=== PATIENT | male | born 1970 | race Caucasian/White ===

== ENCOUNTER 2024-12-07 15:22 | Emergency (ER) | payer OTHER, SELFPAY ==
[2024-12-07 15:23] VITALS: BP 129/78; PULSE 107; RESP 18; TEMP 36.4; O2SAT 98; BMI 36.0
--- NOTE | 2024-12-07 15:47 | EDS_ITS ---
HPI History of Present Illness Chief Complaint: Cough Informant: patient and spouse/S.O. Narrative Narrative: Presents for evaluation concerning recurrent Lyme disease. Patient reported initial productive cough a month ago subsided to a lingering dry cough. He states over the last week developed recurrent fever had myalgias. He has been using Tylenol however after finishing this and timeframe fever would come back. Been using Tylenol to help with symptoms. He states similar symptoms fevers aches when he had Lyme disease a year ago. 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 2 weeks ago removed a tick from was the last time however states no rash or lesions at this time. A year ago was treated with 21 days of antibiotics with resolution of symptoms. Constant removing them. A year ago he had a target lesion on his wrist. Of note he went to urgent care this past Monday due to fevers and they placed him on Z-Bertram for which she finished for treatment of chronic bronchitis. He states x-ray was performed and negative. Fevers will still come and go. No vomiting no diarrhea. No urinary symptoms. No tobacco history. No asthma or COPD history. Prior similar symptoms: Yes PFSH [facility] Medical History (Updated 12/07/24 @ 15:51 by Dayana Powell) Lyme disease Home Medications ?Medication ?Instructions ?Recorded ?Last Taken ?Type acetaminophen 500 mg capsule 1,000 mg PO Q6H PRN fever or pain 12/07/24 12/07/24 History albuterol sulfate 90 mcg/actuation 2 inh inhalation Q6 H PRN shortness 12/07/24 12/04/24 History aerosol inhaler of breath or wheezing azithromycin 250 mg tablet See Rx Instructions PO .COM PLEX 12/07/24 12/07/24 History [id number] 5 ml PO 4X/DAY PRN PRN cold 12/07/24 12/04/24 History 2 mg-30 mg-10 mg/5 mL oral syrup symptoms doxycycline hyclate 100 mg tablet 100 mg PO BID #41 ta bs 12/07/24 Unknown Rx Allergy/AdvReac Type Severity Reaction Status Date / Time No Known Allergies Allergy Verified 12/07/24 15:45 Social History Smoking Status: Never smoker ROS ROS ED Constitutional Constitutional ED: Reports fever(s); Denies chills or sweats ENT ENT ED: Denies sore throat Cardiovascular Cardiovascular: Denies chest pain, leg edema, palpitations or racing heartbeat Respiratory/Chest Respiratory/Chest: Reports cough; Denies dyspnea or dyspnea on exertion Gastrointestinal Gastrointestinal: Denies abdominal pain, diarrhea, nausea or vomiting Genitourinary Genitourinary ED: Denies dysuria, hematuria or urinary frequency Musculoskeletal Musculoskeletal: Reports myalgias; Denies back pain, extremity pain or neck pain Integumentary Denies rash or wounds Neurologic Neurologic: Denies headache(s), paresthesias or weakness EXAM Physical Exam Const Vital Signs: 12/07/24 15:23 12/07/24 15:51 12/07/24 16:14 Temperature 97.5 F L 97.5 F L Temperature Source Temporal Pulse Rate 107 H 107 H Respiratory Rate 18 18 Respiratory Effort Normal Non-Labored Respiratory Depth Normal Respiratory Pattern Normal Blood Pressure 129/78 H 129/78 H Blood Pressure Mean 95 95 Pulse Ox 98 98 Oxygen Delivery Method Room Air Positive well nourished and well developed General Appearance ED: well developed and NAD HEENT Reports moist mucous membranes normocephalic and atraumatic Eyes General Eye ED: Yes normal appearance of both eyes Neck full ROM Chest Wall Chest: Negative for tenderness Resp normal respiratory effort and normal air movement Effort and Inspection: symmetric chest movement; Negative for respiratory distress Cardio regular rate, regular rhythm and no murmurs Peripheral Pulses: pulses 2+ throughout GI normal to inspection, nondistended, normoactive bowel sounds and non-tender Palpation: Negative for guarding or rebound tenderness present Extremity normal to inspection General Extremety ED: Negative for edema or tenderness General Extremity: Negative for edema Neuro oriented x3 and no sensory deficits noted Sensorium / Orientation: awake and alert Skin no rashes or lesions noted and no wounds MDM MDM MDM Narrative Medical decision making narrative: Interventions / MDM: Differential diagnosis: Reported fevers, history of Lyme disease Diagnosis considered but do not suspect: No clinical pneumonia. No urinary symptoms for UTI concerns. My EKG interpretation: N/A Imaging independently reviewed and interpreted by myself: N/A External documents reviewed: N/A Test considered but not ordered:N/A ED course: Patient with no current rash or lesions afebrile in the ED.'s been having symptoms similar to Lyme disease with his fevers a year ago. He has had tick exposures most recent 2 weeks ago. He states cough with mild and not worsened with his fevers. No urinary symptoms. He does not have a PCP. With reported history will send Lyme titers. Will start treatment with doxycycline. Since he does not have a PCP he will send a 21-day course to his pharmacy. He is given follow-up as an outpatient. Patient agrees with this plan. All questions were answered. Re-evaluation: stable Disposition discussed with patient/family/significant other: Patient and significant other Case discussed with consulting clinician: N/A This note was generated with [employer] software. It may contain incorrect words, spelling, and punctuation that were not noted in checking the note before signing. Discharge Plan Triage Chief Complaint: Cough ED Provider: Francisco Porter Dx/Rx/DC Orders Clinical Impression: Fever, Hx of Lyme disease Instructions: ED Lyme Disease Prescriptions: New doxycycline hyclate 100 mg tablet 100 mg PO BID Qty: 41 0RF No Action acetaminophen 500 mg capsule 1,000 mg PO Q6H PRN (Reason: fever or pain) albuterol sulfate 90 mcg/actuation HFA aerosol inhaler 2 inh inhalation Q6H PRN (Reason: shortness of breath or wheezing) azithromycin 250 mg tablet See Rx Instructions .ROUTE .COMPLEX Patient Comments: pt states completed course this morning (12/07/24) Rx Instructions: For 250 mg dose pack: take 500 mg today (day 1), then 250 mg for 4 days (days 2-5) [id number] 2-30-10 mg/5 mL syrup 5 ml PO 4X/DAY PRN PRN (Reason: cold symptoms) Primary Care Provider: Care Physician,Leslie Primary Referrals: Roxana Dhillon [facility], DO [[facility]] - 1-2 Weeks Activity Restrictions/Additional Instructions: Lyme titer sent. Reported history similar presentation with Lyme disease. You were given 21-day course of antibiotics. Follow-up with the primary care doctor. Print Language: French Disposition Disposition: Home, Self Care Discharge Date/Time: 12/07/24 16:15
[2024-12-07 15:51] VITALS: O2SAT 97
[2024-12-07] MEDS: Doxycycline 100 MG CAPSULE PO (15:54)
[2024-12-07 16:14] VITALS: BP 129/78; PULSE 107; RESP 18; TEMP 36.4; O2SAT 98
[2024-12-10 13:08] LABS: Lyme Scn Total Ab w/Rflx Negative (Negative)
== END 2024-12-07 16:15 | disposition home or self-care (01) ==
LOC: ED 16:04
PROVIDERS: Emergency Provider Emergency Medicine; Visit Provider Emergency Medicine
DX: R50.9 Fever, unspecified (principal); R05.9 Cough, unspecified; Z86.19 Personal history of other infectious and parasitic diseases; M79.10 Myalgia, unspecified site
CPT/HCPCS: 86618; 99282